=== PATIENT | male | born 1965 | race Caucasian/White ===

== ENCOUNTER 2024-08-23 09:25 | Inpatient (IN) | payer BC ==
[2024-08-23] MEDS ORDERED: ONDANSETRON 4 MG/2 ML VIAL ONE (10:58)
[2024-08-23] MEDS ORDERED: ACETAMINOPHEN INJECTION 100 ML ONE (10:58)
[2024-08-23] MEDS ORDERED: FAMOTIDINE 20 MG/50 ML IVPB 20 MG/50 ML MG IVPB ONE (10:58)
[2024-08-23] MEDS: ALBUTEROL SO4 2.5/IPRATROPIUM 0.5 INH SOL 3 ML VIAL.NEB. NEB SCH (11:15)
[2024-08-23] MEDS: FAMOTIDINE 20 MG/50 ML IVPB 20 MG/50 ML MG IVPB ONE (11:27)
[2024-08-23] MEDS: ONDANSETRON 4 MG/2 ML VIAL IVPUSH ONE (11:27)
[2024-08-23] MEDS: ACETAMINOPHEN 1000 MG/100 ML BAG IVPB ONE (11:27)
[2024-08-23] MEDS: LACTATED RINGERS SOLUTION 1000 ML INFUS.BAG IV ONE (11:27)
[2024-08-23] MEDS ORDERED: ALBUTEROL SO4 2.5/IPRATROPIUM 0.5 INH SOL 3 ML VIAL.NEB. NEB ONE (11:30)
[2024-08-23 11:49] LABS: HEMATOCRIT 26.9 % (40.1-51.0); HEMOGLOBIN 8.7 g/dL (13.7-17.5); MCHC 32.3 g/dl (32.3-36.5); MEAN CELL VOLUME 102.3 fl (79.0-92.2); MEAN PLT VOLUME 10.5 fl (9.4-12.4); PLATELET COUNT 110 x10^3/uL (163-337); RDW 13.9 % (12.2-16.1)
[2024-08-23 11:58] LABS: INR 1.47 (0.83-1.09); PROTHROMBIN TIME (PATIENT) 16.2 SEC (9.7-13.0)
[2024-08-23 12:00] LABS: ACTIVATED PTT 29.1 SECONDS (25.2-36.5)
[2024-08-23 12:08] LABS: CHLORIDE 93 mmol/L (98-107); POTASSIUM 4.1 mmol/L (3.5-5.1); SODIUM 126 mmol/L (136-145)
[2024-08-23 12:13] LABS: ALBUMIN 2.3 g/dl (3.4-5.0); ANION GAP 11 mmol/L (4-13); BLOOD UREA NITROGEN 5.1 mg/dL (7-18); CALCIUM 8.2 mg/dL (8.5-10.1); CO2 21 mmol/L (21-32); GLUCOSE,RANDOM 110 mg/dL (74-106); MAGNESIUM 2.2 mg/dL (1.8-2.4)
[2024-08-23 12:15] LABS: CREATININE 0.6 mg/dL (0.55-1.3); SGOT/AST 62 U/L (15-37); SGPT/ALT 26 U/L (13-61)
[2024-08-23 12:16] LABS: PHOSPHOROUS 1.9 mg/dL (2.5-4.9)
[2024-08-23 12:18] LABS: BILIRUBIN,TOTAL 3.3 mg/dL (0.2-1); TOT PROT 5.8 g/dl (6.4-8.2)
[2024-08-23 12:19] LABS: ALK PHOS 109 U/L (45-117); N-TERMINAL BNP 1152.9 pg/ml (5-125)
[2024-08-23 13:47] LABS: HCV DIAGNOSTIC IN-HOUSE W/RFLX NON-REACTIVE (NONREACTIVE); HIV INTERPRETATION NEGATIVE (NEGATIVE)
[2024-08-23] MEDS ORDERED: diazePAM CARPU-JECT 10 MG/2 ML DISP.SYRIN ONE ×2 (14:23→15:00)
[2024-08-23] MEDS: diazePAM CARPU-JECT 10 MG/2 ML DISP.SYRIN IVPUSH ONE (15:18)
[2024-08-23] MEDS ORDERED: NICOTINE 21 MG/24 HOURS TOPICAL PATCH ONE (16:12)
[2024-08-23 16:34] LABS: EPI CELLS 3 /uL (0-25.1); HYALINE CASTS 0 /uL (0-3.1); PH,URINE 5.5 (5.0-8.0); URINE APPEARANCE CLEAR; URINE BILIRUBIN 1+ (NEGATIVE); URINE COLOR ORANGE; URINE GLUCOSE (UA) NEGATIVE (NEGATIVE); URINE KETONE TRACE (NEGATIVE); URINE LEUK ESTERASE NEGATIVE (NEGATIVE); URINE NITRITE POSITIVE (NEGATIVE); URINE PROTEIN NEGATIVE (NEGATIVE); URINE WBC 9 /uL (0-25.8)
[2024-08-23] MEDS: NICOTINE 21 MG/24 HOURS TOPICAL PATCH TD SCH (16:34)
[2024-08-23 19:01] VITALS: BMI 25.8
[2024-08-23] MEDS: LORazepam 2 MG/ML SDV VIAL IVPUSH PRN (20:01)
[2024-08-23] MEDS: ALBUTEROL SO4 0.083% IH SOL 2.5 MG/3 ML VIAL.NEB. NEB PRN (20:05)
[2024-08-23] MEDS: SODIUM CHLORIDE 1,000 ML IV SCH (20:26)
[2024-08-23] MEDS: THIAMINE HCL 200 MG/2 ML VIAL IVPB SCH (20:27)
[2024-08-23] MEDS: FOLIC ACID 1 MG TABLET (FP) PO SCH (20:27)
[2024-08-23] MEDS: NAPH,MB-DB/K PH,MBDB POWDER PACKET PO SCH (20:27)
[2024-08-24] MEDS: BUDESONIDE/FORMETEROL FUMARATE 80/4.5 mcg INHALER IH SCH (03:37)
[2024-08-24 08:12] LABS: HEMATOCRIT 25.4 % (40.1-51.0); HEMOGLOBIN 7.8 g/dL (13.7-17.5); MCHC 30.7 g/dl (32.3-36.5); MEAN PLT VOLUME 10.1 fl (9.4-12.4); PLATELET COUNT 103 x10^3/uL (163-337); RDW 14.4 % (12.2-16.1)
[2024-08-24 08:33] LABS: POTASSIUM 4.1 mmol/L (3.5-5.1)
[2024-08-24 08:42] LABS: CALCIUM 7.8 mg/dL (8.5-10.1)
[2024-08-24 08:43] LABS: ALBUMIN 2.1 g/dl (3.4-5.0); BLOOD UREA NITROGEN 6.6 mg/dL (7-18); MAGNESIUM 2.2 mg/dL (1.8-2.4)
[2024-08-24 08:46] LABS: CREATININE 0.6 mg/dL (0.55-1.3)
[2024-08-24 08:47] LABS: BILIRUBIN,TOTAL 2.7 mg/dL (0.2-1)
[2024-08-24] MEDS: ENOXAPARIN NA (PORCINE) 40 MG/0.4 ML DISP.SYRIN SQ SCH (09:44)
[2024-08-24] MEDS: AMMONIUM LACTATE 12% LOTION 225 GM BOTTLE TP SCH (09:48)
[2024-08-24] MEDS ORDERED: LORazepam 1 MG TABLET PO PRN (10:20)
[2024-08-24] MEDS ORDERED: LORazepam 2 MG TABLET PO SCH (11:00)
[2024-08-24] MEDS ORDERED: LORazepam 2 MG/ML SDV VIAL IVPUSH SCH (14:31)
[2024-08-24] MEDS ORDERED: LORazepam 2 MG/ML SDV VIAL IVPB SCH (14:33)
[2024-08-24] MEDS: LORazepam 2 MG/ML SDV VIAL IVPUSH SCH (16:14)
[2024-08-24] MEDS: LORazepam 2 MG/ML SDV VIAL IVPUSH PRN (16:37)
[2024-08-24 18:24] LABS: SYPHILIS W/ RPR CONF NON-REACTIVE (NONREACTIVE)
[2024-08-24 18:51] LABS: HIV INTERPRETATION NEGATIVE (NEGATIVE)
[2024-08-24] MEDS: AMINO ACIDS 4.25%/D5W 1,000 ML IV SCH (19:18)
[2024-08-24] MEDS: LORazepam 1 MG TABLET PO SCH (19:18)
[2024-08-24] MEDS: PERMETHRIN 5% TOPICAL CREAM 60 GM TUBE TP ONE (21:07)
[2024-08-24 23:58] LABS: HEMATOCRIT 26.8 % (40.1-51.0); HEMOGLOBIN 8.1 g/dL (13.7-17.5); MCHC 30.2 g/dl (32.3-36.5); MEAN CELL VOLUME 108.9 fl (79.0-92.2); MEAN PLT VOLUME 10.1 fl (9.4-12.4); PLATELET COUNT 91 x10^3/uL (163-337); RDW 14.1 % (12.2-16.1)
[2024-08-25 07:18] LABS: ABSOLUTE IMMATURE GRANULOCYTES 0.24 x10^3/uL (0.0-0.031); BASOPHILS # 0.01 x10^3/uL (0.01-0.08); EOSINOPHIL % 0.4 % (0.8-7.0); EOSINOPHILS # 0.02 x10^3/uL (0.04-0.54); HEMATOCRIT 26.3 % (40.1-51.0); HEMOGLOBIN 7.9 g/dL (13.7-17.5); MEAN CELL VOLUME 109.6 fl (79.0-92.2); MEAN PLT VOLUME 10.8 fl (9.4-12.4); MONOCYTE # 0.28 x10^3/uL (0.30-0.82); MONOCYTE % 5.6 % (5.3-12.2); PLATELET COUNT 105 x10^3/uL (163-337); RDW 14.2 % (12.2-16.1)
[2024-08-25 07:48] LABS: POTASSIUM 3.9 mmol/L (3.5-5.1)
[2024-08-25 08:03] LABS: CALCIUM 7.9 mg/dL (8.5-10.1)
[2024-08-25 08:04] LABS: BLOOD UREA NITROGEN 7.1 mg/dL (7-18); MAGNESIUM 2.1 mg/dL (1.8-2.4)
[2024-08-25 08:07] LABS: CREATININE 0.4 mg/dL (0.55-1.3)
[2024-08-25 08:08] LABS: BILIRUBIN,TOTAL 2.7 mg/dL (0.2-1); TOT PROT 5.1 g/dl (6.4-8.2)
[2024-08-25] MEDS: TAMSULOSIN HCL 0.4 MG CAP PO SCH (12:23)
[2024-08-25] MEDS: PIPERACILLIN/TAZOB 4.5 GM 4.5 GM/100 ML BAG IVPB SCH (12:43)
[2024-08-25 12:56] LABS: BILIRUBIN,DIRECT 1.4 mg/dL (0.0-0.2)
[2024-08-25 13:21] LABS: URINE COLOR ORANGE
[2024-08-25 13:22] LABS: URINE APPEARANCE CLOUDY; URINE BILIRUBIN MODERATE (NEGATIVE); URINE GLUCOSE (UA) NEGATIVE (NEGATIVE); URINE KETONE NEGATIVE (NEGATIVE); URINE PROTEIN 1+ (NEGATIVE)
[2024-08-25 13:23] LABS: URINE LEUK ESTERASE 1+ (NEGATIVE); URINE NITRITE Positive (NEGATIVE)
[2024-08-25] MEDS ORDERED: DEXTROSE 50%-WATER - 25 GM/50 ML VIAL IVPUSH PRN (15:54)
[2024-08-25] MEDS: DEXTROSE 5%-NORMAL SALINE 1,000 ML IV SCH (18:10)
[2024-08-26] MEDS: PIPERACILLIN/TAZOB 4.5 GM 4.5 GM in DEXTROSE 5%-WATER 100 ML IVPB SCH (02:55)
[2024-08-26] MEDS: LORazepam 2 MG/ML SDV VIAL IVPUSH SCH (06:30)
[2024-08-26 07:14] LABS: HEMATOCRIT 24.9 % (40.1-51.0); HEMOGLOBIN 7.2 g/dL (13.7-17.5); MCHC 28.9 g/dl (32.3-36.5); MEAN CELL VOLUME 113.7 fl (79.0-92.2); MEAN PLT VOLUME 9.9 fl (9.4-12.4); PLATELET COUNT 83 x10^3/uL (163-337); RDW 14.5 % (12.2-16.1)
[2024-08-26 07:22] LABS: INR 1.41 (0.83-1.09); PROTHROMBIN TIME (PATIENT) 15.5 SEC (9.7-13.0)
[2024-08-26 07:39] LABS: POTASSIUM 3.8 mmol/L (3.5-5.1)
[2024-08-26 07:56] LABS: ALBUMIN 1.8 g/dl (3.4-5.0); BLOOD UREA NITROGEN 7.3 mg/dL (7-18); CALCIUM 7.6 mg/dL (8.5-10.1); CREATININE 0.4 mg/dL (0.55-1.3); MAGNESIUM 2.3 mg/dL (1.8-2.4)
[2024-08-26 07:58] LABS: BILIRUBIN,TOTAL 2.1 mg/dL (0.2-1); TOT PROT 4.8 g/dl (6.4-8.2)
[2024-08-26] MEDS ORDERED: LACTULOSE 10 GM/15 ML BULK BOTTLE RC SCH (12:00)
[2024-08-26] MEDS: LACTULOSE 10 GM/15 ML BULK BOTTLE RC SCH (12:38)
[2024-08-26 17:10] LABS: HEMATOCRIT 26.1 % (40.1-51.0); HEMOGLOBIN 7.7 g/dL (13.7-17.5); MCHC 29.5 g/dl (32.3-36.5); MEAN PLT VOLUME 9.8 fl (9.4-12.4); PLATELET COUNT 93 x10^3/uL (163-337); RDW 14.4 % (12.2-16.1)
[2024-08-26] MEDS: POTASSIUM CHLORIDE 10 MEQ in AMINO ACIDS 4.25%/D5W 1,000 ML IV SCH (17:34)
[2024-08-26] MEDS ORDERED: DEXTROSE 50%-WATER 25 GM/50 ML DISP.SYRIN IVPUSH PRN (23:51)
[2024-08-27] MEDS ORDERED: LORazepam 2 MG/ML SDV VIAL IVPUSH SCH (05:00)
[2024-08-27 07:21] LABS: INR 1.43 (0.83-1.09); PROTHROMBIN TIME (PATIENT) 15.6 SEC (9.7-13.0)
[2024-08-27 07:29] LABS: ABSOLUTE IMMATURE GRANULOCYTES 0.15 x10^3/uL (0.0-0.031); BASOPHILS # 0.02 x10^3/uL (0.01-0.08); EOSINOPHIL % 0.3 % (0.8-7.0); EOSINOPHILS # 0.01 x10^3/uL (0.04-0.54); HEMATOCRIT 27.5 % (40.1-51.0); MCHC 29.1 g/dl (32.3-36.5); MEAN CELL VOLUME 111.8 fl (79.0-92.2); MEAN PLT VOLUME 10.4 fl (9.4-12.4); MONOCYTE # 0.21 x10^3/uL (0.30-0.82); MONOCYTE % 6.1 % (5.3-12.2); PLATELET COUNT 98 x10^3/uL (163-337); RDW 14.1 % (12.2-16.1)
[2024-08-27 07:30] LABS: POTASSIUM 3.5 mmol/L (3.5-5.1)
[2024-08-27 07:33] LABS: BLOOD UREA NITROGEN 7.2 mg/dL (7-18); CALCIUM 7.6 mg/dL (8.5-10.1); MAGNESIUM 1.8 mg/dL (1.8-2.4)
[2024-08-27 07:36] LABS: CREATININE 0.4 mg/dL (0.55-1.3)
[2024-08-27 07:38] LABS: BILIRUBIN,TOTAL 2.5 mg/dL (0.2-1); TOT PROT 5.3 g/dl (6.4-8.2)
[2024-08-27 09:02] LABS: BILIRUBIN,DIRECT 1.5 mg/dL (0.0-0.2)
[2024-08-27] MEDS: THIAMINE HCL 200 MG/2 ML VIAL IVPB SCH (12:08)
[2024-08-27 12:27] LABS: ARTERIAL BLD GAS O2 SATURATION 94.8 % (95-98); ARTERIAL BLOOD GAS BASE EXCESS 4.9 mmol/L (-2-2); ARTERIAL BLOOD GAS PO2 72.5 mmHg (80-100); ARTERIAL BLOOD GAS pH 7.422 (7.350-7.450)
[2024-08-27 12:29] LABS: ALLENS TEST POSITIVE
[2024-08-27] MEDS ORDERED: ALBUTEROL SO4 0.083% IH SOL 2.5 MG/3 ML VIAL.NEB. NEB PRN (19:24)
[2024-08-27] MEDS ORDERED: LORazepam 2 MG/ML SDV VIAL IVPUSH PRN ×2 (19:24)
[2024-08-27] MEDS: BUDESONIDE/FORMETEROL FUMARATE 80/4.5 mcg INHALER IH SCH (21:33)
[2024-08-27] MEDS: LACTULOSE 10 GM/15 ML BULK BOTTLE RC SCH (23:55)
[2024-08-28] MEDS: PIPERACILLIN/TAZOB 4.5 GM 4.5 GM in DEXTROSE 5%-WATER 100 ML IVPB SCH (02:00)
[2024-08-28] MEDS ORDERED: LORazepam 2 MG/ML SDV VIAL IVPUSH ONE (05:00)
[2024-08-28] MEDS: LORazepam 2 MG/ML SDV VIAL IVPUSH ONE (05:15)
[2024-08-28 07:49] LABS: ABSOLUTE IMMATURE GRANULOCYTES 0.14 x10^3/uL (0.0-0.031); BASOPHILS # 0.02 x10^3/uL (0.01-0.08); EOSINOPHIL % 0.9 % (0.8-7.0); EOSINOPHILS # 0.03 x10^3/uL (0.04-0.54); HEMATOCRIT 26.9 % (40.1-51.0); MCHC 29.7 g/dl (32.3-36.5); MEAN CELL VOLUME 111.2 fl (79.0-92.2); MEAN PLT VOLUME 9.7 fl (9.4-12.4); MONOCYTE # 0.24 x10^3/uL (0.30-0.82); MONOCYTE % 6.9 % (5.3-12.2); PLATELET COUNT 95 x10^3/uL (163-337); RDW 14.3 % (12.2-16.1)
[2024-08-28 08:07] LABS: POTASSIUM 3.6 mmol/L (3.5-5.1)
[2024-08-28 08:11] LABS: CALCIUM 8.1 mg/dL (8.5-10.1); INR 1.44 (0.83-1.09); PROTHROMBIN TIME (PATIENT) 15.7 SEC (9.7-13.0)
[2024-08-28 08:12] LABS: BLOOD UREA NITROGEN 6.7 mg/dL (7-18); MAGNESIUM 1.8 mg/dL (1.8-2.4)
[2024-08-28 08:15] LABS: CREATININE 0.4 mg/dL (0.55-1.3)
[2024-08-28 08:16] LABS: BILIRUBIN,TOTAL 2.2 mg/dL (0.2-1)
[2024-08-28 08:17] LABS: TOT PROT 5.4 g/dl (6.4-8.2)
[2024-08-28] MEDS: FOLIC ACID 1 MG TABLET (FP) PO SCH (09:42)
[2024-08-28] MEDS: TAMSULOSIN HCL 0.4 MG CAP PO SCH (09:42)
[2024-08-28] MEDS: NAPH,MB-DB/K PH,MBDB POWDER PACKET PO SCH (09:43)
[2024-08-28] MEDS: NICOTINE 21 MG/24 HOURS TOPICAL PATCH TD SCH (09:43)
[2024-08-28] MEDS: AMMONIUM LACTATE 12% LOTION 225 GM BOTTLE TP SCH (10:30)
[2024-08-28] MEDS: PHYTONADIONE 10 MG/1 ML AMP IM ONE (15:00)
[2024-08-28] MEDS: LACTULOSE 20 GM/30 ML UDC (FOR ORAL USE ONLY) PO SCH (17:06)
[2024-08-28 18:29] LABS: HEMATOCRIT 23.9 % (40.1-51.0); HEMOGLOBIN 7.1 g/dL (13.7-17.5); MCHC 29.7 g/dl (32.3-36.5); MEAN CELL VOLUME 110.1 fl (79.0-92.2); MEAN PLT VOLUME 9.8 fl (9.4-12.4); PLATELET COUNT 86 x10^3/uL (163-337); RDW 14.2 % (12.2-16.1)
[2024-08-28] MEDS: DEXTROSE 5%-NORMAL SALINE 1,000 ML IV SCH (20:46)
[2024-08-28 21:36] LABS: HEMATOCRIT 25.1 % (40.1-51.0); HEMOGLOBIN 7.4 g/dL (13.7-17.5); MCHC 29.5 g/dl (32.3-36.5); MEAN CELL VOLUME 112.6 fl (79.0-92.2); MEAN PLT VOLUME 10.2 fl (9.4-12.4); PLATELET COUNT 85 x10^3/uL (163-337); RDW 14.4 % (12.2-16.1)
[2024-08-28] MEDS ORDERED: FAMOTIDINE 20 MG/50 ML IVPB 20 MG/50 ML MG IVPB SCH (22:00)
[2024-08-28] MEDS: POTASSIUM CHLORIDE 10 MEQ in AMINO ACIDS 4.25%/D5W 1,000 ML IV SCH (23:26)
[2024-08-28] MEDS: FAMOTIDINE 20 MG/50 ML IVPB 20 MG/50 ML MG IVPB SCH (23:26)
[2024-08-28] MEDS: LACTULOSE 20 GM/30 ML UDC (FOR RECTAL USE ONLY) PR SCH (23:26)
[2024-08-28] MEDS: ACETAMINOPHEN 1000 MG/100 ML BAG IVPB ONE (23:27)
[2024-08-29] MEDS: PIPERACILLIN/TAZOB 4.5 GM 4.5 GM/100 ML BAG IVPB SCH ×2 (03:20→08:23)
[2024-08-29] MEDS: POTASSIUM CHLORIDE 10 MEQ in AMINO ACIDS 4.25%/D5W 1,000 ML IV SCH (08:23)
[2024-08-29 08:40] LABS: HEMATOCRIT 24.5 % (40.1-51.0); HEMOGLOBIN 7.1 g/dL (13.7-17.5); MEAN CELL VOLUME 112.9 fl (79.0-92.2); MEAN PLT VOLUME 9.9 fl (9.4-12.4); PLATELET COUNT 79 x10^3/uL (163-337); RDW 13.9 % (12.2-16.1)
[2024-08-29 09:11] LABS: POTASSIUM 3.3 mmol/L (3.5-5.1)
[2024-08-29 09:17] LABS: ALBUMIN 1.9 g/dl (3.4-5.0); BLOOD UREA NITROGEN 8.1 mg/dL (7-18)
[2024-08-29 09:20] LABS: CREATININE 0.4 mg/dL (0.55-1.3)
[2024-08-29 09:22] LABS: BILIRUBIN,TOTAL 1.6 mg/dL (0.2-1); TOT PROT 4.9 g/dl (6.4-8.2)
[2024-08-29 11:29] LABS: INR 1.4 (0.83-1.09); PROTHROMBIN TIME (PATIENT) 15.4 SEC (9.7-13.0)
[2024-08-29] MEDS: ACETAMINOPHEN 325 MG TABLET (FP) PO ONE (13:16)
[2024-08-29] MEDS: LACTULOSE 20 GM/30 ML UDC (FOR ORAL USE ONLY) PO SCH (14:48)
[2024-08-29] MEDS: KCL 10 MEQ IVPB 10 MEQ/100 ML INFUS.BAG IVPB SCH (16:39)
[2024-08-29] MEDS: LORazepam 2 MG/ML SDV VIAL IVPUSH ONE ×3 (17:54→20:01)
[2024-08-29] MEDS: ACETAMINOPHEN 1000 MG/100 ML BAG IVPB PRN (21:26)
[2024-08-30 07:01] LABS: HEMATOCRIT 26.8 % (40.1-51.0); HEMOGLOBIN 7.9 g/dL (13.7-17.5); MCHC 29.5 g/dl (32.3-36.5); MEAN CELL VOLUME 111.7 fl (79.0-92.2); MEAN PLT VOLUME 10.2 fl (9.4-12.4); PLATELET COUNT 79 x10^3/uL (163-337); RDW 14.3 % (12.2-16.1)
[2024-08-30 07:09] LABS: POTASSIUM 3.5 mmol/L (3.5-5.1)
[2024-08-30 07:13] LABS: ALBUMIN 2.1 g/dl (3.4-5.0); BLOOD UREA NITROGEN 7.8 mg/dL (7-18); CALCIUM 8.1 mg/dL (8.5-10.1)
[2024-08-30 07:16] LABS: CREATININE 0.5 mg/dL (0.55-1.3)
[2024-08-30 07:18] LABS: BILIRUBIN,TOTAL 1.7 mg/dL (0.2-1); TOT PROT 5.5 g/dl (6.4-8.2)
[2024-08-30] MEDS: PANTOPRAZOLE 40 MG TABLET PO SCH ×2 (09:26→10:59)
[2024-08-30] MEDS: THIAMINE HCL 200 MG/2 ML VIAL IVPB SCH (09:27)
[2024-08-30] MEDS: LACTULOSE 20 GM/30 ML UDC (FOR ORAL USE ONLY) PO SCH (21:22)
[2024-08-31] MEDS: hydrOXYzine PAMOATE 25 MG CAPSULE (FP) PO PRN (21:59)
[2024-08-31] MEDS: MELATONIN 5 MG TABLETS PO PRN (21:59)
[2024-09-01] MEDS: diphenhydrAMINE HCL 25 MG CAPSULE (FP) PO ONE (06:00)
[2024-09-01 07:11] LABS: HEMATOCRIT 22.5 % (40.1-51.0); HEMOGLOBIN 6.7 g/dL (13.7-17.5); MCHC 29.8 g/dl (32.3-36.5); MEAN CELL VOLUME 112.5 fl (79.0-92.2); MEAN PLT VOLUME 10.5 fl (9.4-12.4); PLATELET COUNT 70 x10^3/uL (163-337); RDW 15.4 % (12.2-16.1)
[2024-09-01 07:42] LABS: POTASSIUM 3.2 mmol/L (3.5-5.1)
[2024-09-01 07:44] LABS: BLOOD UREA NITROGEN 3.5 mg/dL (7-18)
[2024-09-01 07:45] LABS: CALCIUM 8.2 mg/dL (8.5-10.1)
[2024-09-01 07:46] LABS: MAGNESIUM 1.7 mg/dL (1.8-2.4)
[2024-09-01 07:48] LABS: CREATININE 0.4 mg/dL (0.55-1.3)
[2024-09-01 09:06] LABS: BILIRUBIN,TOTAL 1.4 mg/dL (0.2-1)
[2024-09-01] MEDS: KCL 10 MEQ IVPB 10 MEQ/100 ML INFUS.BAG IVPB SCH (10:15)
[2024-09-01] MEDS: PANTOPRAZOLE SODIUM 40 MG VIAL IVPUSH SCH (10:15)
[2024-09-01] MEDS: MAGNESIUM 1GM/D5W - 1 GM/100 ML IVPB IVPB ONE (10:16)
[2024-09-01] MEDS: POTASSIUM CHLORIDE TABS 20 MEQ TABLET.ER (FP) PO ONE (10:17)
[2024-09-01] MEDS: HALOPERIDOL LACTATE 5 MG/ML IM ONE (10:29)
[2024-09-01] MEDS: LACTULOSE 20 GM/30 ML UDC (FOR ORAL USE ONLY) PO SCH (21:39)
[2024-09-02 07:36] LABS: HEMATOCRIT 26.4 % (40.1-51.0); MCHC 30.3 g/dl (32.3-36.5); MEAN CELL VOLUME 109.5 fl (79.0-92.2); MEAN PLT VOLUME 10.6 fl (9.4-12.4); PLATELET COUNT 86 x10^3/uL (163-337)
[2024-09-02 08:03] LABS: POTASSIUM 3.7 mmol/L (3.5-5.1)
[2024-09-02 08:08] LABS: CALCIUM 8.5 mg/dL (8.5-10.1)
[2024-09-02 08:09] LABS: ALBUMIN 2.2 g/dl (3.4-5.0); BLOOD UREA NITROGEN 4.3 mg/dL (7-18); MAGNESIUM 1.8 mg/dL (1.8-2.4)
[2024-09-02 08:12] LABS: CREATININE 0.4 mg/dL (0.55-1.3)
[2024-09-02 08:14] LABS: BILIRUBIN,TOTAL 1.3 mg/dL (0.2-1); TOT PROT 5.5 g/dl (6.4-8.2)
[2024-09-02] MEDS ORDERED: MAGNESIUM 1GM/D5W 100ML - 100 ML IVPB IVPB ONE (11:33)
[2024-09-02 15:05] VITALS: BP 139/68; PULSE 83; RESP 18; TEMP 97.7
== END 2024-09-02 15:49 | disposition home or self-care (01) | DRG 775 ==
LOC: JER 09:25 → JERBED 10:18 → J7W 18:07 → J4W 08-26 18:40
PROVIDERS: ADMIT Student in an Organized Health Care Education/Training Program; ATTEND Student in an Organized Health Care Education/Training Program
PROC: HZ2ZZZZ Detoxification Services for Substance Abuse Treatment (ICD-10-PCS; principal; 2024-08-23)
PROC: 0HQ0XZZ Repair Scalp Skin, External Approach (ICD-10-PCS; 2024-08-23)
PROC: 30233N1 Transfusion of Nonautologous Red Blood Cells into Peripheral Vein, Percutaneous Approach (ICD-10-PCS; 2024-08-23)
DX: F10.239 Alcohol dependence with withdrawal, unspecified (principal); G93.41 Metabolic encephalopathy; J69.0 Pneumonitis due to inhalation of food and vomit; D64.9 Anemia, unspecified; E11.9 Type 2 diabetes mellitus without complications; E43 Unspecified severe protein-calorie malnutrition; R62.7 Adult failure to thrive; E51.2 Wernicke's encephalopathy; I10 Essential (primary) hypertension; E83.39 Other disorders of phosphorus metabolism; E83.51 Hypocalcemia; E87.8 Other disorders of electrolyte and fluid balance, not elsewhere classified; E88.09 Other disorders of plasma-protein metabolism, not elsewhere classified; E78.5 Hyperlipidemia, unspecified; E87.1 Hypo-osmolality and hyponatremia; F17.210 Nicotine dependence, cigarettes, uncomplicated; J44.9 Chronic obstructive pulmonary disease, unspecified; J30.9 Allergic rhinitis, unspecified; L40.9 Psoriasis, unspecified; R64 Cachexia; S01.91XA Laceration without foreign body of unspecified part of head, initial encounter; W19.XXXA Unspecified fall, initial encounter; Y93.9 Activity, unspecified; Y92.89 Other specified places as the place of occurrence of the external cause; Y99.9 Unspecified external cause status
CPT/HCPCS: 0241U-QW; 36415; 36430; 36600; 70450-TC; 70551-TC; 71045-TC-FY; 74176-TC; 76705-TC; 80048; 80053; 80307; 81003; 81015; 82140; 82247; 82248; 82272; 82550; 82607; 82728; 82746; 82803; 82962; 82977; 83516; 83540; 83550; 83690; 83735; 83880; 84100; 84436; 84443; 84450; 84460; 84484; 85025; 85027; 85610; 85730; 86038; 86704; 86705; 86706; 86707; 86708; 86709; 86780; 86803; 86850; 86900; 86901; 86922; 87040; 87086; 87340; 87350; 87389; 87517; 87522; 87536; 93005; 93010; 93306-TC; 94640; 97116-GP; 97161-GP; 99285-25; J0131; P9058